=== PATIENT | male | born 1980 | race Caucasian/White ===

== ENCOUNTER 2016-11-09 07:43 | Emergency (ER) | payer BC ==
[~2016-11-09] VITALS: Ht 172.7 cm; Wt 76.5 kg
[2016-11-09 07:45] VITALS: Ht 172.7 cm; Wt 76.5 kg
[2016-11-09] MEDS ORDERED: morphine 4 MG/ML VIAL IV STA (08:03)
[2016-11-09] MEDS ORDERED: KETOROLAC 30 MG INJ IV STA (08:03)
[2016-11-09] MEDS ORDERED: ONDANSETRON 4 MG INJ IV STA (08:03)
[2016-11-09] MEDS ORDERED: SOD CHLORIDE 0.9% 1,000 ML IV STA (08:03)
[2016-11-09 08:27] LABS: ADD SCAN DIFF NO
[2016-11-09 08:52] LABS: BASOPHILS % 0.2 % (0.0-2.0); EOSINOPHILS % 0.3 % (0.0-7.0); HEMATOCRIT 45.9 % (42.0-52.0); HEMOGLOBIN 15.5 g/dl (14.0-18.0); LYMPHOCYTES # 1.8 10^3/ul (0.8-2.9); LYMPHOCYTES % 28.6 % (15.0-51.0); MEAN CORPUSCULAR HEMOGLOBIN 29.7 pg (29.0-33.0); MEAN CORPUSCULAR HGB CONC 33.8 g/dl (32.0-37.0); MEAN CORPUSCULAR VOLUME 87.9 fl (82.0-101.0); MEAN PLATELET VOLUME 10.9 fl (7.4-10.4); MONOCYTE # 0.4 10^3/ul (0.3-0.9); MONOCYTES % 6.5 % (0.0-11.0); NEUTROPHIL # 4.1 10^3/ul (1.6-7.5); NEUTROPHILS % 64.1 % (39.0-77.0); PLATELET COUNT 238 10^3/UL (140-415); RED BLOOD COUNT 5.22 10^6/ul (4.70-6.10); WHITE BLOOD COUNT 6.4 10^3/ul (4.8-10.8)
[2016-11-09 09:18] LABS: ALBUMIN/GLOBULIN RATIO 1.78; BILIRUBIN,INDIRECT 0.2 mg/dl (0-1.1); BILIRUBIN,TOTAL 0.2 mg/dl (0.2-1.3); CALCIUM 9.7 mg/dl (8.4-10.2); CREATININE 0.99 mg/dl (0.61-1.24); POTASSIUM 4.4 mmol/L (3.5-5.1); TOTAL PROTEIN 7.8 g/dl (6.1-8.1)
[2016-11-09 09:37] LABS: ADD UMIC YES; URINE BILIRUBIN (Dip) NEGATIVE (NEGATIVE); URINE BLOOD (Dip) 3+ (NEGATIVE); URINE COLOR LT. YELLOW (YELLOW); URINE GLUCOSE (Dip) NEGATIVE (NEGATIVE); URINE KETONES (Dip) NEGATIVE (NEGATIVE); URINE LEUKOCYTE ESTERASE (Dip) NEGATIVE (NEGATIVE); URINE NITRITE (Dip) NEGATIVE (NEGATIVE); URINE TOTAL PROTEIN (Dip) NEGATIVE (NEGATIVE); URINE UROBILINOGEN (Dip) 0.2 E.U./dL (0.1-1.0)
--- NOTE | 2016-11-09 09:37 | RADRPT ---
PROCEDURE: Scrotal ultrasound CLINICAL INDICATION: Left testicular pain. TECHNIQUE: Scrotal ultrasound was performed with sagittal and transverse views. Lentz scale and co matthias imaging was performed. Images were reviewed on high resolution PACS monitors. COMPARISON: None available FINDINGS: The right testicle measures 4.0 x 2.9 x 2.7 cm. The left testicle measures 4.2 x 2.9 x 3.5 cm. There is normal size and echogenicity and morphology bilaterally. There is normal blood flow seen bilaterally. The epididymi are normal. No hydrocele is identified. There is no evidence for varicocele. The soft tissues are unremarkable. No mass or cyst or other abnormality is seen. IMPRESSION: 1. Unremarkable scrotal ultrasound. 2. Symmetrically normal testes and epididymi. RPTAT: [facility] Physician Todd Date Time Electronically viewed and signed by Physician Todd on 11/09/2016 09:37 /
--- NOTE | 2016-11-09 09:41 | RADRPT ---
PROCEDURE: CT Abdomen and Pelvis without contrast. CLINICAL INDICATION: Painful urination x 3-day TECHNIQUE: CT scan of the abdomen and pelvis without contrast was performed on a multidetector hig h-resolution CT scanner. The patient was scanned without intravenous contrast. Coronal and sagittal reformatted images were obtained from the axial source images. Images were reviewed on a high-resol [email or web address] PACS workstation. The total exam CTDI equals 12.08 mGy and the total exam DLP equals 723.29 mG y-cm. One or the following dose reduction techniques were used: -Automated exposure control. -Adjustment of the mA and/or KV according to patient's size. -Use of iterative reconstruction technique. COMPARISON: None. FINDINGS: Lung Bases: Unremarkable. GI:. Unremarkable. Liver: Unremarkable. Gallbladder: Unremarkable. Pancreas: Unremarkable. Spleen: Unremarkablel Adrenals: Unremarkable. Kidneys: Left kidney appears mildly edematous with mild perinephric stranding. There is pyelocaliec tasis and ureterectasis down to the level of the ureteral vesicle junction where there is a partiall y obstructing 2.5 mm calculus. Bladder: Unremarkable. Pelvic Organs: Unremarkable. Skeleton: Normal for age. Other: N/A IMPRESSION: 1. Mild left-sided perinephric stranding, pyelocaliectasis and ureterectasis secondary to a partiall y obstructing distal left ureteral vesicle junction calculus measuring 2.5 mm. 2. A normal-appearing appendix is visualized. 3. No other significant intra-abdominal or pelvic process identified. RPTAT: [facility] Physician Todd Date Time Electronically viewed and signed by Physician Todd on 11/09/2016 09:41 /
[2016-11-09 09:51] LABS: SQUAMOUS EPITHELIAL CELL,UR OCCASIONAL
[2016-11-09] MEDS ORDERED: HYDR-906 PO (10:13)
[2016-11-09] MEDS ORDERED: TAMS-14 PO (10:13)
[2016-11-09] MEDS ORDERED: IBUP-1542 PO (10:13)
--- NOTE | 2016-11-09 10:19 | ERD ---
ER Documentation Chief Complaint Date/Time DATE: 11/09/16 TIME: 10:17 Chief Complaint SCROTAL PAIN AND PAINFUL URINATION HPI This 36-year-old male complaint sudden onset of left scrotal pain starting early this morning. He denies fevers, vomiting, shortness breath or chest pain. He denies any hematuria or dysuria. Patient does have a history of kidney stone ROS All systems reviewed and are negative except as per history of present illness. Medications Home Meds Active Scripts Tamsulosin Hcl* (Flomax*) 0.4 Mg Cap.er.24h, 0.4 MG PO BID, #15 CAP Prov:DIRK SAUCEDA MD 11/09/16 Ibuprofen* (Motrin*) 600 Mg Tab, 600 MG PO Q6, #20 TAB Prov:DIRK SAUCEDA MD 11/09/16 Hydrocodone/Acetaminophen ([place] 5-325 Tablet) 1 Each Tablet, 1 TAB PO Q6H Y for PAIN, #14 TAB Prov:DIRK SAUCEDA MD 11/09/16 PMhx/Soc Medical and Surgical Hx: pt denies Medical Hx, pt denies Surgical Hx Hx Alcohol Use: No Hx Substance Use: No Hx Tobacco Use: No Physical Exam Vitals Vital Signs Date Time Temp Pulse Resp B/P Pulse Ox O2 Delivery O2 Flow Rate FiO2 11/09/16 07:45 98.9 73 19 144/100 98 Physical Exam Const: [] Alert, uncomfortable due to pain but no distress. Head: Atraumatic Eyes: Normal Conjunctiva ENT: Normal External Ears, Nose and Mouth. Neck: Full range of motion..~ No meningismus. Resp: Clear to auscultation bilaterally Cardio: Regular rate and rhythm, no murmurs Abd: Soft, tender in the left pelvis area. Possibly slight tenderness in the left spermatic cord area but no masses or swelling appreciated. Positive cremasteric reflex. No discharge. No tenderness at McBurney's point no Glez sign. non distended. Normal bowel sounds Skin: No petechiae or rashes Back: No midline or flank tenderness Ext: No cyanosis, or edema Neur: Awake and alert Psych: Normal Mood and Affect Result Diagram: 11/09/16 0815 11/09/16 0815 Results 24 hrs Laboratory Tests Test 11/09/16 08:15 11/09/16 09:00 White Blood Count 6.410^3/ul Red Blood Count 5.2210^6/ul Hemoglobin 15.5g/dl Hematocrit 45.9% Mean Corpuscular Volume 87.9fl Mean Corpuscular Hemoglobin 29.7pg Mean Corpuscular Hemoglobin Concent 33.8g/dl Red Cell Distribution Width 12.0% Platelet Count 81078^3/UL Mean Platelet Volume 10.9fl Neutrophils % 64.1% Lymphocytes % 28.6% Monocytes % 6.5% Eosinophils % 0.3% Basophils % 0.2% Nucleated Red Blood Cells % 0.0/100WBC Neutrophils # 4.110^3/ul Lymphocytes # 1.810^3/ul Monocytes # 0.410^3/ul Eosinophils # 0.010^3/ul Basophils # 0.010^3/ul Nucleated Red Blood Cells # 0.010^3/ul Sodium Level 145mmol/L Potassium Level 4.4mmol/L Chloride Level 105mmol/L Carbon Dioxide Level 28mmol/L Anion Gap 16 Blood Urea Nitrogen 13mg/dl Creatinine 0.99mg/dl Glucose Level 106mg/dl Calcium Level 9.7mg/dl Total Bilirubin 0.2mg/dl Direct Bilirubin 0.00mg/dl Indirect Bilirubin 0.2mg/dl Aspartate Amino Transf (AST/SGOT) 29IU/L Alanine Aminotransferase (ALT/SGPT) 41IU/L Alkaline Phosphatase 72IU/L Total Protein 7.8g/dl Albumin 5.0g/dl Globulin 2.80g/dl Albumin/Globulin Ratio 1.78 Lipase 72U/L Urine Color LT. YELLOW Urine Clarity CLEAR Urine pH 6.0 Urine Specific [place] 1.025 Urine Ketones NEGATIVE Urine Nitrite NEGATIVE Urine Bilirubin NEGATIVE Urine Urobilinogen 0.2 E.U./dL Urine Leukocyte Esterase NEGATIVE Urine Microscopic RBC 10-25/HPF Urine Microscopic WBC NONE SEEN/HPF Urine Squamous Epithelial Cells OCCASIONAL Urine Hemoglobin 3+ Urine Glucose NEGATIVE% Urine Total Protein NEGATIVE Current Medications Medications (Trade) Dose Ordered Sig/Tiffanie Route PRN Reason Start Time Stop Time Status Last Admin Dose Admin Sodium Chloride (NS) 1,000 ml @ 1,000 mls/hr Q1H STAT IV 11/09/16 08:03 11/09/16 09:02 DC 11/09/16 08:11 Morphine Sulfate (morphine) 4 mg ONCE STAT IV 11/09/16 08:03 11/09/16 08:04 DC 11/09/16 08:12 Ondansetron HCl (Zofran Inj) 4 mg ONCE STAT IV 11/09/16 08:03 11/09/16 08:04 DC 11/09/16 08:10 Ketorolac Tromethamine (Toradol) 30 mg ONCE STAT IV 11/09/16 08:03 11/09/16 08:04 DC 11/09/16 08:12 Procedures/MDM Urine shows positive hemoglobin without leukocytes. CBC and CMP are normal. Patient was given 1 L normal saline IV and Toradol 30 mg IV and morphine form of grams IV as well as Zofran [address] abdomen pelvis noncontrast shows a 2.5 mm stone at the left UV junction with mild hydronephrosis and stranding. Patient had improved symptoms after observation and treatment. Patient signs and symptoms of left renal colic without signs to suggest infection, appendicitis, acute abdomen. Scrotal ultrasound shows no evidence of torsion. Patient will treat a short course of [place], ibuprofen instructions to drink clear fluids and follow-up with primary doctor return for fevers, vomiting, new worsening symptoms. He was given a short course of Flomax as well. The patient was stable with no new complaints during the ER course. Clinically, there is no current evidence to suggest meningitis, sepsis, acute abdomen, pneumonia, acute coronary syndrome, pulmonary embolism, or any other emergent condition appearing to require further evaluation or hospitalization. The patient should certainly return for any new or worsening symptoms per the aftercare instructions. They should otherwise follow-up with her primary care doctor for reevaluation this week. Departure Diagnosis: Primary Impression: Renal colic on left side Condition: Stable Patient Instructions: Kidney Stone W/ Colic Referrals: MARIELENA MCCALLUM MD,ELBERT Flood MD Additional Instructions: koki san. verito mucho agua. Cheque otro vez con sanz doctor primario en el proximo velasquez or regresa para mas o nueva simptomas. DIRK SAUCEDA MD Nov 09, 2016 10:19
[2016-11-09 10:32] VITALS: BP 127/62; PULSE 77; RESP 18; TEMP 98.5
== END 2016-11-09 10:32 | disposition home or self-care (01) ==
LOC: FTE 07:43
DX: N23 Unspecified renal colic (principal)
CPT/HCPCS: 74176; 76870; 80053; 81001; 83690; 85025; J1885; J2270; J2405; J7030; 36415; 96374; 96375

== ENCOUNTER 2018-11-18 01:11 | Emergency (ER) | payer BC ==
[~2018-11-18] VITALS: Ht 167.6 cm; Wt 76.1 kg
[~2018-11-18 01:11] MED LIST: HYDR-4011 PO; IBUP-1542 PO; TAMS-14 PO
[2018-11-18 01:13] VITALS: Ht 167.6 cm; Wt 76.1 kg
--- NOTE | 2018-11-18 01:34 | ERD ---
ER Documentation Chief Complaint Chief Complaint RIGHT SIDED GROIN PAIN; NO URINARY S/S XTODAY HPI This is a 38-year-old male who presents here in the emergency department with complaints of right-sided lower abdominal pain, right-sided groin pain, right sided scrotal/testicular pain that started a day ago and getting worse today. Has difficulty walking due to pain. Denies testicular trauma/injury. Denies headache, head injury, loss of consciousness, dizziness, neck pain, neck stiffness, throat pain, difficulty swallowing, difficulty breathing lying flat, shoulder pain, chest pain, back pain, nausea, vomiting, constipation, diarrhea, urinary symptoms, loss of bowel and bladder control, trauma, injury, falls, difficulty walking due to pain, numbness or tingling sensation, calf pain, recent travel, recent major surgery in the last 3 weeks, calf pain, recent long travel, recent exposure to any illness, recent antibiotic use in the last 3 months, fever, chills, seizures. Past medical history: Denies. Surgical history: Denies. Social: Denies smoking, use of alcoholic beverages, use of illegal drugs. ROS All systems reviewed and are negative except as per history of present illness. Medications Home Meds Active Scripts Tramadol HCl (Tramadol HCl) 50 Mg Tablet, 50 MG PO Q4 PRN for SEVERE PAIN LEVEL 7-10, #5 TAB Prov:JESUS NELSON F 11/18/18 Tamsulosin Hcl* (Flomax*) 0.4 Mg Cap.er.24h, 0.4 MG PO QPM, #30 CAP Prov:PASILAJESUS GAO F 11/18/18 Ondansetron Hcl* (Zofran*) 4 Mg Tablet, 4 MG PO Q8H PRN for NAUSEA AND/OR VOMITING, #30 TAB Prov:PASILABANJESUS F 11/18/18 Ibuprofen* (Motrin*) 800 Mg Tab, 800 MG PO Q8 PRN for PAIN AND OR ELEVATED TEMP, #30 TAB Prov:PASILABANJESUS F 11/18/18 Tamsulosin Hcl* (Flomax*) 0.4 Mg Cap.er.24h, 0.4 MG PO BID, #15 CAP Prov:DIRK SAUCEDA MD 11/09/16 Ibuprofen* (Motrin*) 600 Mg Tab, 600 MG PO Q6, #20 TAB Prov:DIRK SAUCEDA MD 11/09/16 Hydrocodone/Acetaminophen ([place] 5-325 Tablet) 1 Each Tablet, 1 TAB PO Q6H PRN for PAIN, #14 TAB Prov:DIRK SAUCEDA MD 11/09/16 Allergies Allergies: Coded Allergies: No Known Allergy (Unverified , 11/18/18) PMhx/Soc Medical and Surgical Hx: pt denies Medical Hx, pt denies Surgical Hx History of Surgery: No Anesthesia Reaction: No Hx Neurological Disorder: No Hx Respiratory Disorders: No Hx Cardiac Disorders: No Hx Psychiatric Problems: No Hx Miscellaneous Medical Probl: No Hx Alcohol Use: No Hx Substance Use: No Hx Tobacco Use: No Smoking Status: Never smoker Physical Exam Vitals Vital Signs Date Temp Pulse Resp B/P (MAP) Pulse Ox O2 O2 Flow FiO2 Time Delivery Rate 11/18/18 98.0 68 16 119/83 99 Room Air 03:47 (95) 11/18/18 97.1 75 19 159/92 99 01:13 (114) Physical Exam Const: No acute distress Head: Atraumatic Eyes: Normal Conjunctiva ENT: Normal External Ears, Nose and Mouth. Neck: Full range of motion. No meningismus. Resp: Clear to auscultation bilaterally Cardio: Regular rate and rhythm, no murmurs Abd: Soft, non tender, non distended. Normal bowel sounds. Negative Glez sign. Has right lower abdominal tenderness to light and deep palpation. Positive psoas sign. Positive Rovsing sign. Right inguinal area: No obvious swelling but tenderness to palpation. No discoloration. Left inguinal area: No swelling. No discoloration. No tenderness to palpation. : No penile swelling. No penile discharge. No penile bleeding. No redness. Equal distribution of hair. No vesicular lesions. Scrotum/testicular area: Tenderness to the right side. No obvious swelling or discoloration. Skin: No petechiae or rashes. No vesicular lesions. Color appears normal for ethnicity. No skin tenting. No signs of severe dehydration. Back: No midline or flank tenderness. No CVA tenderness. Ext: No cyanosis, or edema Neur: Awake and alert. No neurological deficits. Psych: Normal Mood and Affect Result Diagram: 11/18/18 0155 11/18/18 0155 Results 24 hrs Laboratory Tests Test 11/18/18 01:55 White Blood Count 6.8 10^3/ul Red Blood Count 4.89 10^6/ul Hemoglobin 14.7 g/dl Hematocrit 43.2 % Mean Corpuscular Volume 88.3 fl Mean Corpuscular Hemoglobin 30.1 pg Mean Corpuscular Hemoglobin Concent 34.0 g/dl Red Cell Distribution Width 11.7 % Platelet Count 261 10^3/UL Mean Platelet Volume 10.5 fl Immature Granulocytes % 0.300 % Neutrophils % 50.0 % Lymphocytes % 40.5 % Monocytes % 7.5 % Eosinophils % 1.3 % Basophils % 0.4 % Nucleated Red Blood Cells % 0.0 /100WBC Immature Granulocytes # 0.020 10^3/ul Neutrophils # 3.4 10^3/ul Lymphocytes # 2.8 10^3/ul Monocytes # 0.5 10^3/ul Eosinophils # 0.1 10^3/ul Basophils # 0.0 10^3/ul Nucleated Red Blood Cells # 0.0 10^3/ul Urine Color YELLOW Urine Clarity CLEAR Urine pH 5.0 Urine Specific [place] 1.024 Urine Ketones NEGATIVE mg/dL Urine Nitrite NEGATIVE mg/dL Urine Bilirubin NEGATIVE mg/dL Urine Urobilinogen NEGATIVE mg/dL Urine Leukocyte Esterase NEGATIVE Gwen/ul Urine Microscopic RBC 9 /HPF Urine Microscopic WBC 0 /HPF Urine Hemoglobin 1+ mg/dL Urine Glucose NEGATIVE mg/dL Urine Total Protein NEGATIVE mg/dl Sodium Level 141 mmol/L Potassium Level 4.0 mmol/L Chloride Level 108 mmol/L Carbon Dioxide Level 25 mmol/L Anion Gap 8 Blood Urea Nitrogen 19 mg/dl Creatinine 0.89 mg/dl Est Glomerular Filtrat Rate mL/min > 60 mL/min Glucose Level 96 mg/dl Calcium Level 9.4 mg/dl Total Bilirubin 0.3 mg/dl Direct Bilirubin 0.00 mg/dl Indirect Bilirubin 0.3 mg/dl Aspartate Amino Transf (AST/SGOT) 31 IU/L Alanine Aminotransferase (ALT/SGPT) 44 IU/L Alkaline Phosphatase 87 IU/L Total Protein 7.1 g/dl Albumin 4.1 g/dl Globulin 3.00 g/dl Albumin/Globulin Ratio 1.36 Amylase Level 133 U/L Lipase 135 U/L Current Medications Medications Dose Sig/Tiffanie Start Time Status Last (Trade) Ordered Route PRN Stop Time Admin Dose Reason Admin Sodium 1,000 ml @ Q1H ONCE 11/18/18 DC 11/18/18 Chloride 1,000 mls/hr IV 02:00 01:51 11/18/18 02:59 Morphine 4 mg ONCE STAT 11/18/18 DC 11/18/18 Sulfate IV 01:38 01:51 (morphine) 11/18/18 01:42 Ondansetron 4 mg ONCE STAT 11/18/18 DC 11/18/18 HCl (Zofran IV 01:38 01:51 Inj) 11/18/18 01:42 IV Flush 10 ml STK-MED 11/18/18 DC 11/18/18 (NS 10 ml) ONCE .ROUTE 03:01 03:06 11/18/18 03:02 Sodium 100 ml @ ud STK-MED 11/18/18 DC 11/18/18 Chloride ONCE .ROUTE 03:01 03:06 11/18/18 03:02 Iohexol 150 ml STK-MED 11/18/18 DC 11/18/18 (Omnipaque ONCE .ROUTE 03:01 03:06 300mg/ ml) 11/18/18 03:02 Ketorolac 30 mg ONCE STAT 11/18/18 DC 11/18/18 Tromethamine IV 03:36 03:44 (Toradol) 11/18/18 03:37 Procedures/MDM Diagnostic tests: Urinalysis: Reviewed. Culture urine: Sent. Blood works: White count is not elevated. Testicular ultrasound: Unremarkable testicular ultrasound. Negative for to rsion. CT of the abdomen and pelvis with IV contrast: 1. Punctate 1 mm calculus at the right vesicoureteral junction and moderate right hydroureteronephrosis. 2. No additional intrarenal calcifications. Treatment: Saline lock. Normal saline IV bolus. Morphine IV. Zofran IV. Re-evaluation: No episode of emesis in the emergency department. Denies abdominal pain, back pain, groin pain, testicular pain. Negative Glez sign. Negative [place] sign (heel jar test). Negative psoas sign. Negative Rovsing sign. No CVA tenderness. : No penile swelling. No discharge. No bleeding. No scrotal tenderness. Differential diagnosis I have low suspicion for sepsis, pancreatitis, cholecystitis, diverticulitis, bowel obstruction, diverticulitis with abscess, appendicitis, appendicitis with abscess, ruptured appendicitis, pyelonephritis, obstructing kidney stones, septic stone. This case was discussed with my supervising physician, Dr. Jorge Grubbs who agreed my medical decision making. Final diagnosis: Punctate 1 mm calculus at the right vesicoureteral junction and moderate right hydroureteronephrosis. Prescription: Flomax. Motrin. Tramadol. Zofran. Follow-up with PCP in the next 24-48 hours. Follow-up with urologist in the next 24 to 48 hours. Come back here in the emergency department for any new symptoms or any worsening symptoms. All questions and concerns were answered. Patient and family members verbalized understanding and agreed with plan of care. Hemodynamically stable on discharge. Departure Diagnosis: Primary Impression: Hydroureteronephrosis Additional Impressions: Flank pain Kidney stone Condition: Stable Additional Instructions: Follow-up with PCP in the next 24-48 hours. Follow-up with urologist in the next 24 to 48 hours. Come back here in the emergency department for any new symptoms or any worsening symptoms. JESUS NELSON Nov 18, 2018 01:34
[2018-11-18] MEDS ORDERED: morphine 4 MG/ML VIAL IV STA (01:38)
[2018-11-18] MEDS ORDERED: ONDANSETRON 4 MG INJ IV STA (01:38)
[2018-11-18] MEDS ORDERED: SOD CHLORIDE 0.9% 1,000 ML IV ONE (02:00)
[2018-11-18] MEDS ORDERED: SOD CHLORIDE 0.9% 100 ML ONE (03:01)
[2018-11-18] MEDS ORDERED: IOHEXOL 300MG/ML 150 ML BTL ONE (03:01)
[2018-11-18] MEDS ORDERED: IBUP800T48 PO (03:33)
[2018-11-18] MEDS ORDERED: ONDA4TAB8 PO (03:34)
[2018-11-18] MEDS ORDERED: TAMS-14 PO (03:34)
[2018-11-18] MEDS ORDERED: TRAM50TA2 PO (03:35)
[2018-11-18] MEDS ORDERED: KETOROLAC 30 MG INJ IV STA (03:36)
[2018-11-18 03:47] VITALS: BP 119/83; PULSE 68; RESP 16
== END 2018-11-18 03:48 | disposition home or self-care (01) ==
LOC: FTE 01:11
DX: N13.2 Hydronephrosis with renal and ureteral calculous obstruction (principal)
CPT/HCPCS: 74177; 76870; 80053; 81001; 82150; 83690; 85025; 96361; 96374; 96375; 99285; J1885; J2270; J2405; J7030; Q9967